=== PATIENT | male | born 1965 | race Caucasian/White ===

== ENCOUNTER 2023-11-02 13:59 | Observation (INO) ==
[2023-11-02 14:37] LABS: Basophils # (auto) 0.09 K/uL (0.00-0.20); Basophils % (auto) 1.1 %; Eosinophils # (auto) 0.19 K/uL (0.00-0.50); Eosinophils % (auto) 2.4 %; Hematocrit (blood only) 43.4 % (42.0-52.0); Hemoglobin 15.2 g/dl (14.0-18.0); Immature Granulocytes # (auto) 0.03 K/uL (0.01-0.20); Immature Granulocytes % (auto) 0.4 %; Lymphocytes % (auto) 21.3 %; Mean Corpuscular Hemoglobin 31.1 pg (25.0-34.0); Mean Corpuscular Volume 88.8 fL (80.0-100.0); Mean Platelet Volume 9.2 fL (9.4-12.4); Monocytes % (auto) 7.5 %; Neutrophils # (auto) 5.36 K/uL (1.40-6.50); Neutrophils % (auto) 67.3 %; Platelet Count 266 K/uL (130-400); RDW Coefficient of Variation 12.3 % (11.5-14.5); RDW Standard Deviation 40.2 fL (36.4-46.3); Red Blood Count 4.89 M/uL (4.70-6.10); White Blood Count 7.97 K/ul (4.8-10.8)
--- NOTE | 2023-11-02 14:39 | Emergency Department Note ---
ED Provider Note History of Present Illness Chief Complaint: Cardiac Assessment Stated Complaint: CHEST PAIN, OPEN HEART SUG, 4YEARS Time Seen by Provider: 11/02/23 14:38 This is a 58-year-old male with a history of hypertension, high cholesterol, history of aortic stenosis requiring bovine valve replacement 4 years ago in [place], who presents to the emergency department with pain located in the center of his chest that he woke up with this morning. He also endorses significant fatigue today. He rates the pain as 1-2 out of 10. It does not radiate anywhere and does not really get any better or worse with anything. He states that it feels like it is his heart. His pain does not seem to get any worse when he exerts himself though he has been afraid to push his exertion today worried that he might make the pain worse. He has had intermittent palpitations on and off for quite a long time and denies any new increase in palpitation frequency. He had a little bit of nausea and felt slightly clammy for about 10 minutes at work earlier today but that resolved and has not returned. The pain does not seem to be any worse with any positional changes. He thinks that his feet might be a little bit more swollen than normal but he denies any significant increase in swelling in his legs. He does not feel short of breath at rest or with exertion. Does endorse a bit of a dry cough over the past month intermittently but nothing worse recently. Has not had any fevers. Aside from the heart valve replacement 4 years ago, the patient does not have any other significant cardiac history. He has not had an echocardiogram in 2 years as he recently relocated to this area about a year ago and has not established with cardiology yet. He denies any new orthopnea or paroxysmal nocturnal dyspnea. No new leg pain or redness. This father did from a heart attack at age 57. No history of smoking. Not on any blood thinners. Home Medications Medication Instructions Recorded Confirmed Type acetaminophen 500 mg tablet 500 mg PO Q6H PRN Pain/Fever 11/02/23 11/02/23 History magnesium 250 mg tablet 250 mg PO DAILY 11/02/23 11/02/23 History olmesartan 40 1 tab PO DAILY 11/02/23 11/02/23 History mg-hydrochlorothiazide 25 mg tablet Allergies Allergy/AdvReac Type Severity Reaction Status Date / Time No Known Allergies Allergy Unverified 11/02/23 16:18 Past Med/Surg History Problem List (Updated 11/02/23 @ 18:40 by SANA Cole) Ascending aorta dilatation (Acute) Elevated BUN (Acute) Fatigue (Acute) Chest pain (Acute) Chest pain Social History Smoking Status: Never smoker Preferred Language: Yakut Feels Safe at Home: Yes Physical Exam Vital Signs Vital Signs - 24 hr 11/02/23 14:05 11/02/23 16:29 11/02/23 18:35 Temperature 97.2 F L Temperature Source Temporal Artery Scan Pulse Rate 72 Pulse Rate [Apical] 73 77 Respiratory Rate 18 18 18 Respiratory Effort / Characteristics Non-Labored Spontaneous Respiratory Depth Normal Respiratory Pattern Regular Blood Pressure 143/93 H Blood Pressure [Right Arm] 144/85 H 139/100 Blood Pressure Mean 109 Blood Pressure Mean [Right Arm] 104 113 Pulse Oximetry 97 99 97 Oxygen Delivery Method Room Air Room Air Room Air Sepsis Recent Fever Within 48 Hours No Sepsis New/Unexplained Change in Mental Status N/A Sepsis Action Taken by Nursing No Action Required CONSTITUTIONAL: Well developed, well nourished, in no acute distress, pleasant. HEAD: Normocephalic, atraumatic. EYES: conjunctivae normal, extraocular muscles intact. ENMT: External ears normal. Nose with normal external appearance, no congestion. Oral mucous membranes moist. Oropharynx normal. NECK: Full active range of motion. No JVD or hepatojugular reflux RESPIRATORY: Breathing unlabored and symmetric. Lungs clear to auscultation bilaterally. No wheeze, rales, or rhonchi. CARDIOVASCULAR: Regular rate and rhythm. Soft systolic murmur identified at the tricuspid area. CHEST: Unable to reproduce the patient's pain with palpation of the sternum. ABDOMEN: Normal bowel sounds. Soft, nontender, no peritonitis. No masses. No CVA tenderness bilaterally. GENITOURINARY: [employer] present. Normal appearance with no lesions, rashes, or discharge noted. Testicles descended bilaterally with no tenderness, swelling, or masses. No epididymal tenderness. MUSCULOSKELETAL: Moves all extremities at all joints without pain or difficulty. Trace nonpitting edema in bilateral lower extremities. No erythema or unilateral leg swelling, no tenderness in the legs. SKIN: [place], warm, dry. NEUROLOGIC: Awake, alert, oriented. Gaze is conjugate. Face symmetric, speech normal. Moves head and all four extremities spontaneously. PSYCHIATRIC: Appropriate. Normal affect Course Administered Medications Discontinued Medications Aspirin (Aspirin Chew 324 Mg) 324 mg PO NOW STA Stop: 11/02/23 16:07 Last Admin: 11/02/23 16:10 Dose: 324 mg Documented By: PALAK Ioversol (Optiray 320 125ml) 117 ml IV ONCE ONE Stop: 11/02/23 16:00 Last Admin: 11/02/23 15:59 Dose: 117 ml Documented By: KATHIE Medical Decision Making Differential Diagnosis Acute coronary syndrome, CHF, valvular dysfunction, arrhythmia, fluid overload, pulmonary embolism, pneumothorax, myocarditis, pericarditis, pancreatitis, GERD, among other pathology Laboratory Data 11/02/23 14:17 11/02/23 14:17 Lab Results 11/02/23 11/02/23 Range/Units 14:17 16:25 WBC 7.97 (4.8-10.8) K/ul RBC 4.89 (4.70-6.10) M/uL Hgb 15.2 (14.0-18.0) g/dl Hct 43.4 (42.0-52.0) % MCV 88.8 (80.0-100.0) fL MCH 31.1 (25.0-34.0) pg MCHC 35.0 (32.0-36.0) g/dL RDW Std Deviation 40.2 (36.4-46.3) fL RDW Coeff of Philip 12.3 (11.5-14.5) % Plt Count 266 (130-400) K/uL MPV 9.2 L (9.4-12.4) fL Immature Gran % (Auto) 0.4 % Neut % (Auto) 67.3 % Lymph % (Auto) 21.3 % [place] % (Auto) 7.5 % Eos % (Auto) 2.4 % Baso % (Auto) 1.1 % Neut # (Auto) 5.36 (1.40-6.50) K/uL Lymph # (Auto) 1.70 (1.20-3.40) K/uL [place] # (Auto) 0.60 H (0.11-0.59) K/uL Eos # (Auto) 0.19 (0.00-0.50) K/uL Baso # (Auto) 0.09 (0.00-0.20) K/uL Immature Gran # (Auto) 0.03 (0.01-0.20) K/uL PT 10.8 (9.0-12.0) Seconds INR 1.0 (0.9-1.1) APTT 29 (21-31) Seconds PTT Ratio 1.1 Sodium 139 (136-145) mmol/L Potassium 3.8 (3.5-5.1) mmol/L Chloride 104 (98-107) mmol/L Carbon Dioxide 27 (21-32) mmol/L Anion Gap 8 (3-11) BUN 36 H (6-23) mg/dl Creatinine 0.78 (0.6-1.4) mg/dl Est Cr Clr Drug Dosing 142.5 ml/min Est GFR ( Amer) 115.3 ml/min Est GFR (Non-Af Amer) 99.5 ml/min BUN/Creatinine Ratio 46.2 H (10-20) Glucose 103 H (70-99(Fasting)) mg/dl Calcium 10.1 (8.6-10.3) mg/dl Total Bilirubin 0.7 (0.2-1.0) mg/dl AST 18 (13-39) U/L ALT 18 (7-52) U/L Alkaline Phosphatase 82 (34-104) U/L Troponin I High Sens 4.1 3.4 (0-20) pg/ml Total Protein 8.1 (6.0-8.3) gm/dl Albumin 4.8 (3.4-5.0) gm/dl Globulin 3.3 (2.5-4.0) gm/dl Albumin/Globulin Ratio 1.5 (0.9-2) Lipase 72 (11-82) U/L Imaging Data Radiologist's Impression: Chest X-Ray 11/02/23 14:09 XR chest 1V not portable CLINICAL HISTORY: Chest pain, nonspecific COMPARISON STUDY: No previous studies for comparison. FINDINGS: Status post median sternotomy. Lung volumes are normal. Lungs are clear. There is no pneumothorax or pleural effusion. Cardiac size is normal. Mediastinal contours are normal. There is no evidence for pulmonary edema. IMPRESSION: No acute cardiopulmonary findings. ACT 112: Negative or not required by law. Electronically signed by: Song Morris M.D. 11/02/2023 2:55 PM Chest CTA 11/02/23 15:41 CT ANGIOGRAPHY OF THE CHEST, PULMONARY EMBOLUS PROTOCOL CLINICAL HISTORY: central CP, hx bovine aortic valve replacement COMPARISON STUDY: Chest radiograph performed earlier today. TECHNIQUE: Following IV administration of 117 mL of Optiray, helical axial images of the chest were obtained utilizing the pulmonary embolus protocol. Maximal intensity projections and sagittal and coronal reformats were viewed on an independent 3D workstation. IV contrast was administered without complication. Automated exposure control was utilized for the study. A dose lowering technique was utilized adhering to the principles of ALARA. CT DOSE: 917.52 mGy.cm FINDINGS: No pulmonary emboli are identified. There are median sternotomy wires and a prosthetic aortic valve. There is mild dilatation of the ascending aorta measuring 4.1 cm at the level of the main pulmonary artery. Thoracic aortic opacification is suboptimal but no dissection is identified. There is mild atherosclerotic plaque within the thoracic aorta. No thoracic lymphadenopathy. No pneumothorax or pleural effusion is present. There is no consolidation to suggest pneumonia. There are no suspicious pulmonary nodules. No acute fractures within the visualized bony thorax are present. Visualized portions of the upper abdomen are unremarkable. IMPRESSION: 1. No pulmonary emboli identified. 2. No acute intrathoracic findings. 3. Mild dilatation of the ascending aorta measuring 4.1 cm at the level of the main pulmonary artery. Thoracic aortic opacification suboptimal but no dissection identified. ACT 112: Negative or not required by law. Electronically signed by: Song Morris M.D. 11/02/2023 4:45 PM MDM Narrative 58-year-old male presents to the emergency department with pain located behind the lower part of his sternum that he woke up with this morning, rated as 1-2 out of 10, not worse or better with much of anything. Endorses fatigue today. Had an episode of nausea and feeling clammy for about 10 minutes earlier today at work which spontaneously resolved and has not returned. He thinks that his feet might be a little more puffy than normal but not much. Denies any dyspnea. Endorses a mild dry cough over the past month. History of bovine aortic valve replacement 4 years ago in [place]. Lives in this area now. See above for further details. Patient resting comfortably in no distress with normal vital signs aside from minimal hypertension at 143/93. O2 saturation 97% on room air. He is not tachycardic. He is not in any respiratory distress. He has a soft systolic murmur likely consistent with valve replacement. Unable to reproduce his symptoms. He is not obviously fluid overloaded. EKG initially interpreted by myself demonstrating sinus rhythm with a first- degree AV block UT interval 220. Remainder of intervals normal. Nonspecific T wave abnormality in lead III and aVF, no other acute abnormalities identified. IV was inserted and labs were obtained. Patient was given 324 mg aspirin Labs: No leukocytosis or anemia. No thrombocytopenia. Coags normal. BUN and BUN/creatinine ratio elevated. Initial and repeat troponin normal. Chest x-ray 1 view negative for acute process Heart score 4 points. Reevaluated patient at bedside and discussed case with ED attending Dr. Aguirre. Decided to obtain a CT of the chest for further evaluation. This demonstrates mild dilation of the ascending aorta measuring 4.1 cm no dissection noted. Patient continued with mild discomfort. Given his history, lack of cardiology follow-up, and need for echocardiogram, I recommended admission and he was agreeable. [facility] agrees to admit the patient. Impression Chest pain, Fatigue, Elevated BUN, Ascending aorta dilatation Discharge Plan Visit Data Chief Complaint: Cardiac Assessment Stated Complaint: CHEST PAIN, OPEN HEART SUG, 4YEARS ED Provider: Ken Aguirre ED Midlevel Provider: Joe Hare Discharge Problem: Chest pain, Fatigue, Elevated BUN, Ascending aorta dilatation Patient Disposition: Admitted As Inpatient Condition: Good Forms Stand Alone Forms: My [facility] Cerephex Prescriptions Prescriptions: No Action acetaminophen [Tylenol Ex Str Rapid Release] 500 mg Tablet 500 mg PO Q6H PRN (Reason: Pain/Fever) magnesium 250 mg Tablet 250 mg PO DAILY olmesartan-hydrochlorothiazide 40-25 mg Tablet 1 tab PO DAILY Referrals Referrals: PCP,NO [Physician] - Discharge Problem: Chest pain Qualifiers: Chest pain type: precordial pain Qualified Code(s): R07.2 - Precordial pain Fatigue Qualifiers: Fatigue type: unspecified Qualified Code(s): R53.83 - Other fatigue
[2023-11-02 14:53] LABS: Partial Thromboplastin Ratio 1.1; Partial Thromboplastin Time 29 Seconds (21-31); Prothrombin Time 10.8 Seconds (9.0-12.0)
[2023-11-02 14:55] LABS: Albumin Level 4.8 gm/dl (3.4-5.0); Bilirubin,Total 0.7 mg/dl (0.2-1.0); Calcium 10.1 mg/dl (8.6-10.3); Potassium 3.8 mmol/L (3.5-5.1)
--- NOTE | 2023-11-02 14:56 | XRay Report ---
XR chest 1V not portable CLINICAL HISTORY: Chest pain, nonspecific COMPARISON STUDY: No previous studies for comparison. FINDINGS: Status post median sternotomy. Lung volumes are normal. Lungs are clear. There is no pneumo thorax or pleural effusion. Cardiac size is normal. Mediastinal contours are normal. There is no evid ence for pulmonary edema. IMPRESSION: No acute cardiopulmonary findings. ACT 112: Negative or not required by law. Electronically signed by: Song Morris M.D. 11/02/2023 2:55 PM
[2023-11-02 15:01] LABS: Albumin Globulin Ratio 1.5 (0.9-2); BUN Creatinine Ratio 46.2 (10-20); Creatinine Clr Calc Pharmacy 142.5 ml/min; Est GFR (African American) 115.3 ml/min; Est GFR (Non-African American) 99.5 ml/min; Globulin 3.3 gm/dl (2.5-4.0); Total Protein 8.1 gm/dl (6.0-8.3)
[2023-11-02 15:02] LABS: Troponin I High Sensitivity 4.1 pg/ml (0-20)
[2023-11-02] MEDS: OPTIRAY 320 125ml IV ONE (15:59)
[2023-11-02] MEDS: ASPIRIN CHEW 324 MG PO STA (16:10)
--- NOTE | 2023-11-02 16:47 | CT Scan Report ---
CT ANGIOGRAPHY OF THE CHEST, PULMONARY EMBOLUS PROTOCOL CLINICAL HISTORY: central CP, hx bovine aortic valve replacement COMPARISON STUDY: Chest radiograph performed earlier today. TECHNIQUE: Following IV administration of 117 mL of Optiray, helical axial images of the chest were o btained utilizing the pulmonary embolus protocol. Maximal intensity projections and sagittal and cor onal reformats were viewed on an independent 3D workstation. IV contrast was administered without co mplication. Automated exposure control was utilized for the study. A dose lowering technique was ut ilized adhering to the principles of ALARA. CT DOSE: 917.52 mGy.cm FINDINGS: No pulmonary emboli are identified. There are median sternotomy wires and a prosthetic aor tic valve. There is mild dilatation of the ascending aorta measuring 4.1 cm at the level of the main pulmonary artery. Thoracic aortic opacification is suboptimal but no dissection is identified. There is mild atherosclerotic plaque within the thoracic aorta. No thoracic lymphadenopathy. No pneumothora x or pleural effusion is present. There is no consolidation to suggest pneumonia. There are no suspic ious pulmonary nodules. No acute fractures within the visualized bony thorax are present. Visualized portions of the upper abdomen are unremarkable. IMPRESSION: 1. No pulmonary emboli identified. 2. No acute intrathoracic findings. 3. Mild dilatation of the ascending aorta measuring 4.1 cm at the level of the main pulmonary artery. Thoracic aortic opacification suboptimal but no dissection identified. ACT 112: Negative or not required by law. Electronically signed by: Song Morris M.D. 11/02/2023 4:45 PM
[2023-11-02] MEDS ORDERED: ALUMINUM/MAGNESIUM SUSP 30 ML UDC PO PRN (18:33)
[2023-11-02] MEDS ORDERED: MAGNESIUM HYDROXIDE SUSP 30 ML UDC PO PRN (18:33)
[2023-11-02] MEDS ORDERED: ACETAMINOPHEN 325 MG TAB PO PRN (18:33)
--- NOTE | 2023-11-02 18:34 | History & Physical Report ---
Date of Service November 02, 2023 Assessment & Plan (1) Chest pain: Plan Chest pain rule out ACS Patient is yet to follow-up with PCP in the area, but has established with [facility] PCP. Patient has moved in the area in the last year or so. Patient comes in with chest pain. Will get A1c and lipid profile. Troponin x 2 negative, EKG without acute ST or T changes. Trend troponin, EKG with chest pain, sublingual nitro as needed, EKG in the a.m., echo, cardiology consult. N.p.o. midnight until cardiology eval in AM. Hypertension: Continue home olmesartan and hydrochlorothiazide. DVT prophylaxis: Heparin subcu Full code History of Present Illness Chief Complaint: Chest pain Primary Care Provider: Duc Lewis MD 58-year-old male with PMH of HTN, bicuspid aortic valve status post bovine valve replacement 4 years ago on annual echo surveillance presented to the ED with complaint of chest pain. Patient reports that he woke up with retrosternal chest discomfort in the morning, 1-2/10 in severity, no radiation to scapula or back or arm or neck, had 1 episode of associated sweating/clammy for about 5 minutes in the day, did not improve through the day, did not have exacerbation with activity, presented to the ED as he was concerned because of his cardiac history. Patient denies fever/sore throat/cough/abdominal pain/acute changes in his bowel or bladder habit. Patient denies smoking, rarely uses alcohol, denies recreational drug use Medication discussed with the patient in detail Full code Plan of care discussed with the patient and his at bedside who voiced understanding and were agreeable. Allergies Allergy/AdvReac Type Severity Reaction Status Date / Time No Known Allergies Allergy Unverified 11/02/23 16:18 Home Medications Medication Instructions Recorded Confirmed Type acetaminophen 500 mg tablet 500 mg PO Q6H PRN Pain/Fever 11/02/23 11/02/23 History magnesium 250 mg tablet 250 mg PO DAILY 11/02/23 11/02/23 History olmesartan 40 1 tab PO DAILY 11/02/23 11/02/23 History mg-hydrochlorothiazide 25 mg tablet Past Med/Surg History Problem List (Updated 11/02/23 @ 18:38 by Halima Yang MD) Chest pain Social History Smoking Status: Never smoker Preferred Language: Yakut Feels Safe at Home: Yes Review of Systems Review of Systems: Negative otherwise mentioned in HPI. Physical Exam Physical Exam: GENERAL: Alert and oriented x3. NAD, on RA. Obese class I. HEENT: No pallor, no icterus. Pupils equal, round and reactive to light. Oral mucosa moist. NECK: No JVD, no neck masses. HEART: S1 and S2 heard. Regular rate and rhythm. + murmur, no gallop. RESPIRATORY SYSTEM: Normal AP diameter. No accessory muscle use. No wheezing, no crackles. ABDOMEN: Soft, bowel sounds present, nontender, no distention. CENTRAL NERVOUS SYSTEM: No facial droop. Speech is clear. Obeys simple commands. Moves extremities. EXTREMITIES: No edema, no erythema seen. Results & Data Results & Data Vital Signs (Past 12 Hours) Vital Signs Temp Pulse Pulse Resp BP BP Pulse Ox 11/02/23 16:29 73 18 144/85 H 99 11/02/23 14:05 36.2 C L 72 18 143/93 H 97 O2 Del Method 11/02/23 16:29 Room Air 11/02/23 14:05 Room Air
[2023-11-02] MEDS ORDERED: NITROGLYCERIN SL 0.4 MG/TAB TAB SL PRN (18:36)
[2023-11-02] MEDS ORDERED: oxyCODONE HCL IR 5 MG TAB (IMMEDIATE RELEASE) PO PRN (22:07)
[2023-11-02] MEDS: NITROGLYCERIN SL 0.4 MG/TAB TAB SL STA (22:09)
[2023-11-02] MEDS: MELATONIN 3 MG TAB PO PRN (23:42)
[2023-11-03 04:13] LABS: Hematocrit (blood only) 41.6 % (42.0-52.0); Hemoglobin 14.6 g/dl (14.0-18.0); Mean Corpuscular Hemoglobin 31.4 pg (25.0-34.0); Mean Corpuscular Hgb Conc 35.1 g/dL (32.0-36.0); Mean Corpuscular Volume 89.5 fL (80.0-100.0); Platelet Count 238 K/uL (130-400); RDW Coefficient of Variation 12.3 % (11.5-14.5); RDW Standard Deviation 39.9 fL (36.4-46.3); Red Blood Count 4.65 M/uL (4.70-6.10); White Blood Count 7.27 K/ul (4.8-10.8)
[2023-11-03 04:38] LABS: BUN Creatinine Ratio 34.2 (10-20); Calcium 9.3 mg/dl (8.6-10.3); Chol HDL Ratio 5.6 (0-5); Creatinine Clr Calc Pharmacy 140.7 ml/min; Est GFR (African American) 114.7 ml/min; Magnesium 1.9 mg/dl (1.7-2.4); Potassium 3.3 mmol/L (3.5-5.1)
[2023-11-03 07:02] LABS: Estimated Average Glucose 105 mg/dl; Hemoglobin A1C 5.3 % (4.5-5.6)
[2023-11-03] MEDS: MAGNESIUM OXIDE 400 MG TAB PO SCH (08:32)
[2023-11-03] MEDS: LOSARTAN POTASSIUM 50 MG TAB PO SCH (08:32)
[2023-11-03] MEDS: hydroCHLOROthiazide 25 MG TAB PO SCH (08:33)
--- NOTE | 2023-11-03 08:53 | Cardiology Consultation ---
Date of Consultation November 03, 2023 Assessment & Plan (1) Chest pain: * Serial EKG and high-sensitivity troponin levels reassuring. * Resting echocardiogram without any regional wall motion abnormalities * CT angiogram of the pulmonary embolism * Proceed with exercise stress echocardiogram for further assessment (2) History of aortic valve replacement with bioprosthetic valve: * History of severe bicuspid aortic valve stenosis having presented with congestive heart failure in 2019 and ultimately underwent surgical aortic valve replacement with a bioprosthetic aortic valve. Stable valvular indices on echocardiogram performed today. * Would recommend aspirin 81 mg daily for stroke prophylaxis in the setting of AVR which is standard of care in patients that have low bleeding risk (3) Ascending aorta dilatation: * Mild enlargement of the proximal ascending aorta, 4.1 cm in setting of history of bicuspid aortic valve. * Will plan on reimaging at an interval of 6-12 months as an outpatient (4) Dyslipidemia: * Significant dyslipidemia noted with LDL cholesterol of 181 mg/dL in Jul, 2023, 155 mg/dL today. * Intolerant to trials of simvastatin and rosuvastatin in the past with cramps / muscle pains * Reportedly had angiographically normal coronary arteries and therefore ongoing elevated cholesterol permissible per previous providers * Likely proceed with at trial of Ezetimibe as outpatient. History of Present Illness Attending Physician: Elizabeth Pichardo MD History of Present Illness Mr. Garzon is a 58 year old man seen in cardiology consultation per the request of Dr Yang for the evaluation of chest pain. Patient seen in the ED room C3. Patient's girlfriend, Kathi, at the bedside. He describes feeling in his normal state of health until yesterday morning when he woke up with a vague 2/10 intensity chest discomfort that persisted throughout the day. He felt very tired and lethargic which is not his usual. Occasionally he will have a twinge of chest discomfort on the left side of his chest that goes away within seconds, but this was more midline, and persisted. He notes rare occasional "flutters "but this was different. Ultimately the discomfort eased up overnight last night. He describes having a history of congenital bicuspid aortic valve with aortic valve stenosis. He was hospitalized in [facility] ([place], [place]) in 2019 and per his description was diagnosed with a bicuspid aortic valve at that time as well as severe aortic stenosis and ultimately underwent bioprosthetic aortic valve replacement. He recalls having had a cardiac catheterization and was told that his heart arteries were normal. He states his most recent echocardiogram had been with his previous grinder and plater in [place] in 2022. He moved to [facility] about a year ago and had yet to establish local cardiology care here having established with Dr. Lewis of [facility] [place] a few months ago. Past medical history is otherwise notable for hypertension for which she takes olmesartan and HCTZ. He denies ever having been on low-dose aspirin with the exception of a few days after the surgery. He has a history of dyslipidemia with side effects to both rosuvastatin and simvastatin per his recollection and therefore has not been on treatment. Allergies Allergy/AdvReac Type Severity Reaction Status Date / Time No Known Allergies Allergy Unverified 11/02/23 16:18 Home Medications Medication Instructions Recorded Confirmed Type acetaminophen 500 mg tablet 500 mg PO Q6H PRN Pain/Fever 11/02/23 11/02/23 History magnesium 250 mg tablet 250 mg PO DAILY 11/02/23 11/02/23 History olmesartan 40 1 tab PO DAILY 11/02/23 11/02/23 History mg-hydrochlorothiazide 25 mg tablet Patient History Social History Smoking Status: Never smoker Hx Alcohol Use: Yes Hx Substance Use: No Preferred Language: Armenian Communication Ability: Effective Sponge Packer Required: No Beliefs That Will Affect Care: None Current Living Situation: Significant Other Feels Safe at Home: Yes Safety Concerns: Feels Safe At This Time Assistive Devices: None Review of Systems Review of Systems: All systems reviewed & are unremarkable except as noted in HPI & below Physical Exam Physical Exam: General: no acute distress and stated age Eyes: conjunctiva are pink and non-injected, sclera clear Neck: normal jugular venous pulse, no hepatojugular reflux Chest: normal shape and normal respiratory effort -Well-healed midline sternotomy incision , stable sternum, no reproducible chest discomfort on palpation Lungs: clear to auscultation and percussion Cardiac Exam: - regular heart sounds, no murmurs, rubs, or gallops, no jugular venous distention Abdomen: abdomen soft, non-tender, no abnormal masses and no hepatosplenomegaly Musculoskeletal: no gait disturbance, no weakness Extremities: no edema and no cyanosis Neuro:awake, conversant, follows commands, no focal motor deficits Psych: appropriate affect and insight. Results & Data Vital Signs (Past 12 Hours) Vital Signs Pulse Pulse Resp BP BP BP Pulse Ox 11/03/23 08:38 79 18 123/73 98 11/03/23 07:17 82 11/03/23 06:00 62 17 127/72 98 11/03/23 04:21 76 18 96 11/03/23 03:08 64 11/03/23 01:01 124/79 11/03/23 00:03 76 13 100/63 11/02/23 23:09 79 15 115/63 11/02/23 22:30 80 19 131/84 11/02/23 22:03 82 15 106/59 L 11/02/23 22:00 80 18 101/62 11/02/23 22:00 82 18 106/59 L 98 11/02/23 21:36 80 19 143/82 H 11/02/23 21:21 83 O2 Del Method 11/03/23 08:38 Room Air 11/03/23 07:17 11/03/23 06:00 Room Air 11/03/23 04:21 Room Air 11/03/23 03:08 11/03/23 01:01 11/03/23 00:03 11/02/23 23:09 11/02/23 22:30 11/02/23 22:03 11/02/23 22:00 11/02/23 22:00 Room Air 11/02/23 21:36 11/02/23 21:21 Laboratory Results Cardiac Enzymes 11/02/23 11/02/23 11/02/23 Range/Units 14:17 16:25 22:22 AST 18 (13-39) U/L Troponin I High Sens 4.1 3.4 3.8 (0-20) pg/ml 11/03/23 Range/Units 04:06 AST (13-39) U/L Troponin I High Sens 3.5 (0-20) pg/ml Coagulation 11/02/23 Range/Units 14:17 PT 10.8 (9.0-12.0) Seconds APTT 29 (21-31) Seconds Lipids 11/03/23 Range/Units 04:06 Triglycerides 245 H (0-150) mg/dl Cholesterol 248 H (0-200) mg/dl HDL Cholesterol 44 mg/dl Cholesterol/HDL Ratio 5.6 H (0-5) CBC 11/02/23 11/03/23 Range/Units 14:17 04:06 WBC 7.97 7.27 (4.8-10.8) K/ul RBC 4.89 4.65 L (4.70-6.10) M/uL Hgb 15.2 14.6 (14.0-18.0) g/dl Hct 43.4 41.6 L (42.0-52.0) % Plt Count 266 238 (130-400) K/uL Neut # (Auto) 5.36 (1.40-6.50) K/uL Lymph # (Auto) 1.70 (1.20-3.40) K/uL [place] # (Auto) 0.60 H (0.11-0.59) K/uL Eos # (Auto) 0.19 (0.00-0.50) K/uL Baso # (Auto) 0.09 (0.00-0.20) K/uL Comprehensive Metabolic Panel 11/02/23 11/03/23 Range/Units 14:17 04:06 Sodium 139 137 (136-145) mmol/L Potassium 3.8 3.3 L (3.5-5.1) mmol/L Chloride 104 104 (98-107) mmol/L Carbon Dioxide 27 27 (21-32) mmol/L BUN 36 H 27 H (6-23) mg/dl Creatinine 0.78 0.79 (0.6-1.4) mg/dl Glucose 103 H 114 H (70-99(Fasting)) mg/dl Calcium 10.1 9.3 (8.6-10.3) mg/dl AST 18 (13-39) U/L ALT 18 (7-52) U/L Alkaline Phosphatase 82 (34-104) U/L Total Protein 8.1 (6.0-8.3) gm/dl Albumin 4.8 (3.4-5.0) gm/dl Intake and Output 11/02/23 11/03/23 11/03/23 22:59 06:59 14:59 Intake Total 0 / 0 Balance 0 / 0 Intake: Oral 0 / 0 Other: # Unmeasured Voids 1 Weight 117.3 kg Weight Measurement Method Chair Scale Lipid panel performed as an outpatient 07/31/2023: Total cholesterol 272 Triglycerides 234 HDL 44 LDL 181 mg/dL Lipid panel performed today 11/03/2023: Total cholesterol 248 Triglycerides 245 HDL 44 LDL 155 Hemoglobin A1c performed 07/31/2023 5.5% Diagnostic Findings Summary of transthoracic echocardiogram performed 11/03/2023: The study is technically limited but adequate for the evaluation of the referral indication. There is mild concentric left ventricular hypertrophy. No regional wall motion abnormalities noted. Left ventricular systolic function is normal. Left Ventricular Ejection Fraction = 55-60%. The right ventricle is normal in size and function. There is a bioprosthetic aortic valve. The prosthetic leaflets are not well-visualized. There is no significant valvular regurgitation. The gradient is normal for this prosthetic aortic valve. Diastolic dysfunction, Grade II (pseudonormalization pattern). Doppler findings do not suggest pulmonary hypertension. There is no pericardial effusion. EKG tracings performed x 3 on 11/02/2023 and again this morning on 11/03/2023 reviewed independently revealing sinus rhythm with rate ranging from 62 to 70 bpm, first-degree AV block, mild nonspecific repolarization abnormalities. Summary of CT angiogram chest performed 11/01/2023: 1. No pulmonary emboli identified. 2. No acute intrathoracic findings. 3. Mild dilatation of the ascending aorta measuring 4.1 cm at the level of the main pulmonary artery. Thoracic aortic opacification suboptimal but no dissection identified. (1) Chest pain Chest pain type: precordial pain Qualified Code(s): R07.2 - Precordial pain
[2023-11-03] MEDS ORDERED: OLMESARTAN HYDROCHLOROTHIAZIDE PO SCH (09:00)
--- OUTSIDE RECORDS SUMMARY | 2023-11-03 11:21 | External Medical Summary | Summary of Care ---
Author Name Unknown Organization [facility] Address [address] [place] [address] Phone [phone] Care Team Providers Care Occupational Safety Specialist Name Role Phone Duc Lewis MD Primary Care Provider [phone] Reason for Visit * Reason Onset Date Comments Medication Refill 07/23/2023 Encounter Details Date Type Department Care Team (Late st Contact Info) Description 07/23/2023 Refill [facility] [address] [place] [address] JulyDuc MD [address] [place] [address] Erectile dysfunction, unspecified erectile dysfunction type Allergies Active Allergy Reactions Criticality Noted Date Comments Statins Muscle pain 05/26/2022 documented as of this encounter (statuses as of 07/23/2023) Medications Medication Sig Dispensed Refills Start Date End Date Status Testosterone 40.5 MG/2.5GM (1.62%) Transdermal Gel APPLY 1 PACKET TO SKIN ONCE A DAY 0 05/15/2022 Active Olmesartan Medoxomil-HCTZ 40-25 MG Oral TabletIndications:Hyp ertension goal BP (blood pressure) < 140/90 Take 1 Tablet by mouth in the morning. 90 Tablet 3 04/13/2023 Active Sildenafil Citrate 100 MG Oral TabletIndications:Ere ctile dysfunction, unspecified erectile dysfunction type Take 1 Tablet by mouth daily as needed for Erectile Dysfunction. 30 Tablet 0 04/13/2023 Active documented as of this encounter (statuses as of 07/23/2023) Active Problems Problem Noted Date Diagnosed Date S/P aortic valve replacement 06/22/2022 Bicuspid aortic valve 06/22/2022 Hypercholesterolemia 06/22/2022 Low testosterone 06/22/2022 Statin intolerance 06/22/2022 Primary insomnia 06/22/2022 Hypertension goal BP (blood pressure) < 140/90 0 06/22/2022 documented as of this encounter (statuses as of 07/23/2023) Social History Tobacco Use Types Packs/Day Years Used Date Smoking Tobacco: Never Smokeless Tobacco: Never Alcohol Use Standard Drinks/Week Comments Never 0 (1 standard drink = 0.6 oz pur e alcohol) Sex and Gender Information Value Date Recorded Sex Assigned at Not on file Gender Identity Not on file Sexual Orientation Not on file Job Start Date Occupation Industry Not on file Not on file Not on file documented as of this encounter Miscellaneous Notes * Telephone Encounter - Tisha Figueroa - 07/23/2023 10:33 PM EDTRefused Prescriptions: Disp Refills Sildenafil Citrate 100 MG Oral Tablet 30 Tab*0 Sig: Take 1 Tablet by mouth daily as needed for Erectile Dysfunction.Refused By: JEANNETTE FIGUEROAeason for Refusal: Duplicate Request documented in this encounter Plan of Treatment Upcoming Encounters Date Type Department Care Team (Late st Contact Info) Description 10/19/2023 4:40 PM EDT Office Visit [facility] [address] [place] [address] July, Duc Knowles MD [address] [place] [facility] [place] [address] Health Maintenance Due Date Last Done Comments Diabetes Screening 1965 Lipid Panel 1965 Depression Screening 1977 HIV Screening 1980 Albumin/Creatinine Ratio 07/20/1983 Hepatitis C Screening 07/20/1983 DTaP,Tdap,and Td Vaccines (1 - Tdap) 1984 Hepatitis B (1 of 3 - 19+ 3-dose series) 1984 Colonoscopy 2010 Fecal Occult Blood Test 2010 Sigmoidoscopy 2010 Zoster Vaccines (1 of 2) 07/20/2015 Cologuard 04/09/2021 04/09/2018, 03/30/2018 Colorectal Cancer Screening 04/09/2021 GFR 10/30/2021 10/30/2020, 10/07, 10/29/2020, Additional history exists COVID-19 Vaccine ( - 2022- season) 2022 Influenza Vaccine (FLU shot) (Season Ended) 2023 GARDASIL-HPV IMMUNIZATION SERIES Aged Out No longer eligible based on patient's age to complete this topic MENINGOCOCCAL (MENACTRA/MENVEO) Aged Out No longer eligible based on patient's age to complete this topic Pneumococcal Vaccine: Pediatrics (0 to 5 Years) and At-Risk Patients (6 to 64 Years) Aged Out No longer eligible based on patient's age to complete this topic documented as of this encounter Medical Devices Not on filedocumented as of this encounter Visit Diagnoses Diagnosis Erectile dysfunction, unspecified erectile dysfunction type documented in this encounter Care Teams Occupational Safety Specialist Relationship Specialty Start Date End Date July, Duc Knowles MD [address] [place] [address] PCP - General Family Medicine 06/18/22 documented as of this encounter
--- OUTSIDE RECORDS SUMMARY | 2023-11-03 11:21 | External Medical Summary | Summary of Care ---
Author Name Unknown Organization [facility] Address [address] [place] [address] Phone [phone] Care Team Providers Care Analysis Engineer Name Role Phone Duc Lewis MD Primary Care Provider [phone] Reason for Visit * Reason Onset Date Comments Health Maintenance 06/21/2023 Encounter Details Date Type Department Care Team (Late st Contact Info) Description 06/21/2023 Telephone [facility] [address] [place] [address] Duc Lewis MD [address] [place] [address] Health Maintenance Allergies Active Allergy Reactions Criticality Noted Date Comments Statins Muscle pain 05/26/2022 documented as of this encounter (statuses as of 06/21/2023) Medications Medication Sig Dispensed Refills Start Date [...] as of this encounter (statuses as of 06/21/2023) Active Problems Problem Noted Date Diagnosed Date S/P aortic valve replacement 06/22/2022 Bicuspid aortic valve 06/22/2022 Hypercholesterolemia 06/22/2022 Low testosterone 06/22/2022 Statin intolerance 06/22/2022 Primary insomnia 06/22/2022 Hypertension goal BP (blood pressure) < 140/90 0 06/22/2022 documented as of this encounter (statuses as of 06/21/2023) Social History Tobacco Use Types Packs/Day Years [...] encounter Miscellaneous Notes * Telephone Encounter - Delmy Flor LPN - 06/21/2023 11:26 AM EDT Care Gaps Comprehensive Care Outreach Last Office/Telemedicine Visit: 04/13/2023 (in office), Visit date not found (telemedicine) Next Office Visit: 10/19/2023 Hemoglobin AIC Results: No results found for: "HEMOGLOBIN A1C" BP Readings from Last 1 Encounters: 04/13/23 130/82 Reviewed Health Maintenance below: Health Maintenance Topic Date Due Diabetes Screening Never done Lipid Panel Never done Depression Screening Never done HIV Screening Never done Albumin/Creatinine Ratio Never done Hepatitis C Screening Never done Hepatitis B (1 of 3 - 19+ 3-dose series) Never done DTaP,Tdap,and Td Vaccines (1 - Tdap) Never done Zoster Vaccines (1 of 2) Never done Colorectal Cancer Screening 04/09/2021 GFR 10/30/2021 Cologuard follow Labs already ordered Care Gap Outreach Action Taken: Unable to reach won't ring through documented in this encounter Plan of Treatment Upcoming Encounters Date Type Department Care Team (Late st Contact Info) Description 10/19/2023 4:40 PM EDT Office Visit [facility] [address] [place] [address] Duc Lewis MD [address] [place] [place] [address] Health Maintenance Due Date Last Done Comments [...] Colorectal Cancer Screening 04/09/2021 GFR 10/30/2021 10/30/2020, 10/29/2020 COVID-19 Vaccine ( - 2022-2 4 season) 2022 Influenza Vaccine (FLU shot) (Season Ended) 2023 GARDASIL-HPV IMMUNIZATION SERIES Aged Out No longer eligible b ased on patient's age to complete this topic MENINGOCOCCAL (MENACTRA/MENVEO) Aged Out No longer eligible b ased on patient's age to complete this topic Pneumococcal Vaccine: Pediatrics (0 to 5 Years) and At-Risk Patients (6 to 64 Years) Aged Out No longer eligible b ased on patient's age to complete this topic documented as of this encounter Medical Devices Not on filedocumented as of this encounter Care Teams Analysis Engineer Relationship Specialty Start Date End Date July, Duc Knowles MD [address] [place] [address] PCP - General Family Medicine 06/18/22 documented as of this encounter
--- OUTSIDE RECORDS SUMMARY | 2023-11-03 11:21 | External Medical Summary | Summary of Care ---
Author Name Unknown Organization [facility] Address [address] [place] [address] Phone [phone] Care Team Providers Care Skein Straightener Name Role Phone Duc Lewis MD Primary Care Provider [phone] Reason for Visit * Reason Comments Outpatient Testing Encounter Details Date Type Department Care Team (Late st Contact Info) Description 07/31/2023 8:10 AM EDT Laboratory Laboratory, [facility] [address] [facility] [place] [address] [facility] [address] [place] [address] Hypertension goal BP (blood pressure) < 140/90; Hypercholesterolemia; Low testosterone; Screening for diabetes mellitus Allergies Active Allergy Reactions Criticality Noted Date Comments Statins Muscle pain 05/26/2022 documented as of this encounter (statuses as of 07/31/2023) Medications Medication Sig Dispensed Refills Start Date End Date Status Testosterone 40.5 MG/2.5GM (1.62%) Transdermal Gel APPLY 1 PACKET TO SKIN ONCE A DAY 05/15/2022 Active Olmesartan Medoxomil-HCTZ 40-25 MG Oral TabletIndications:Hyp ertension goal BP (blood pressure) < 140/90 Take 1 Tablet by mouth in the morning. 90 Tablet 3 04/13/2023 Active Sildenafil Citrate 100 MG Oral TabletIndications:Ere ctile dysfunction, unspecified erectile dysfunction type Take 1 Tablet by mouth daily as needed for Erectile Dysfunction. 30 Tablet 07/24/2023 Active documented as of this encounter (statuses as of 07/31/2023) Active Problems Problem Noted Date Diagnosed Date S/P aortic valve replacement 06/22/2022 Bicuspid aortic valve 06/22/2022 Hypercholesterolemia 06/22/2022 Low testosterone 06/22/2022 Statin intolerance 06/22/2022 Primary insomnia 06/22/2022 Hypertension goal BP (blood pressure) < 140/90 0 06/22/2022 documented as of this encounter (statuses as of 07/31/2023) Social History Tobacco Use Types Packs/Day Years [...] on file documented as of this encounter Plan of Treatment Upcoming Encounters Date Type Department Care Team (Late st Contact Info) Description 10/19/2023 4:40 PM EDT Office Visit [facility] [address] [place] [address] JulyDuc MD [address] [place] [address] Pending Results Name Type Priority Associated Diagnoses Date /Time COMPREHENSIVE METABOLIC PANEL Lab Routine Hypertension goal BP (blood pressure) < 140/90 07/31/2023 8:02 AM EDT LIPID PANEL WITH DIRECT LDL IF TG IS HIGH Lab Routine Hypercholesterolemia 07/31/2023 8:02 AM EDT TESTOSTERONE, TOTAL Lab Routine Low testosterone 07/31/2023 8:02 AM EDT HEMOGLOBIN A1C Lab Routine Screening for diabetes mellitus 07/31/2023 8:02 AM EDT Health Maintenance Due Date Last Done Comments [...] as of this encounter Visit Diagnoses Diagnosis Hypertension goal BP (blood pressure) < 140/90 Unspecified essential hypertension Hypercholesterolemia Pure hypercholesterolemia Low testosterone Other testicular hypofunction Screening for diabetes mellitus documented in this encounter Care Teams Skein Straightener Relationship Specialty Start Date End Date July, Duc Knowles MD [address] [place] [address] PCP - General Family Medicine 06/18/22 documented as of this encounter
--- OUTSIDE RECORDS SUMMARY | 2023-11-03 11:21 | External Medical Summary ---
Author Name Unknown Address Unknown Organization [id number] [address] [place] [address] Laboratory Report Ordering Provider Test Date Status 07/31/2023 08:02:28 Final Observation Date Value Abnormality Reference (Units ) Status BUN 07/31/2023 08:02:28 30 Above high normal 6-20 (mg/dL) Final Creatinine 07/31/2023 08:02:28 1.1 0.6-1.2 (mg/dL) Final Glomerular filtration rate/1.73 sq M.predicted [Volume Rate/Area] in Serum, Plasma or Blood by Creatinine-based formula (CKD-EPI) 07/31/2023 08:02:28 81 >=60 (mL/min) Final eGFR is calculated based on the CKD-EPI 2020 equation Sodium 07/31/2023 08:02:28 137 135-146 (m mol/L) Final Potassium 07/31/2023 08:02:28 4.4 3.5-5.1 (m mol/L) Final Cl 07/31/2023 08:02:28 100 98-107 (mm ol/L) Final CO2 07/31/2023 08:02:28 25 22-32 (mmo l/L) Final Anion gap 07/31/2023 08:02:28 12 7-15 (mmol /L) Final Glucose 07/31/2023 08:02:28 100 70-120 (mg /dL) Final Albumin 07/31/2023 08:02:28 4.7 3.8-5.0 (g /dL) Final AST (Aspartate aminotransferase) 07/31/2023 08:02:28 17 10-50 (U/L) Final Alk Phos 07/31/2023 08:02:28 104 35-130 (U/ L) Final Bilirubin, Total 07/31/2023 08:02:28 0.5 <=1 .2 (mg/dL) Final Calcium 07/31/2023 08:02:28 9.8 8.4-10.2 ( mg/dL) Final Protein 07/31/2023 08:02:28 7.6 6.0-8.3 (g /dL) Final ALT (Alanine aminotransferase) 07/31/2023 08:02:28 16 10-50 (U/L) Final Performing Location [facility] [address] [facility] [address]
--- OUTSIDE RECORDS SUMMARY | 2023-11-03 11:21 | External Medical Summary ---
Author Name Unknown Address Unknown Organization [id number] [place] [address] [place] [address] Laboratory Report Ordering Provider Test Date Status 07/31/2023 08:59:27 Final Normal: <30 mg/g creatinine< br/>High: 30-300 mg/g creatinine
Very High: >300 mg/g creatinine
Nephrotic: >2200 mg/g creatinine Observation Date Value Abnormality Reference (Units ) Status Albumin, Urine 07/31/2023 08:59:27 3.79 (mg/dL) Final Creatinine, Urine 07/31/2023 08:59:27 124 (mg/dL) Final Albumin/Creatinine [Mass Ratio] in Urine 07/31/2023 08:59:27 31 Above high normal <30 (mg/g Creat) Final Performing Location [facility] [place] [address] [place] [address]
--- OUTSIDE RECORDS SUMMARY | 2023-11-03 11:21 | External Medical Summary | Summary of Care ---
Author Name Unknown Organization [facility] Address [address] [place] [address] Phone [phone] Care Team Providers Care A&P Technician Name Role Phone Germaine Moncada MD Primary Care Provider [phone] Reason for Visit * Reason Onset Date Comments Medication Refill 07/23/2023 Encounter Details Date Type Department Care Team (Late st Contact Info) Description 07/23/2023 Refill [facility] [address] [place] [address] JulyGermaine MD [address] [place] [address] Erectile dysfunction, unspecified erectile dysfunction type Allergies Active Allergy Reactions Criticality Noted Date Comments Statins Muscle pain 05/26/2022 documented as of this encounter (statuses as of 07/24/2023) Medications Medication Sig Dispensed Refills Start Date End Date Status Testosterone 40.5 MG/2.5GM (1.62%) Transdermal Gel APPLY 1 PACKET TO SKIN ONCE A DAY 0 05/15/2022 Active Olmesartan Medoxomil-HCTZ 40-25 MG Oral TabletIndications: Hypertension goal BP (blood pressure) < 140/90 Take 1 Tablet by mouth in the morning. 90 Tablet 3 04/13/2023 Active Sildenafil Citrate 100 MG Oral TabletIndications: Erectile dysfunction, unspecified erectile dysfunction type Take 1 Tablet by mouth daily as needed for Erectile Dysfunction. 30 Tablet 0 07/24/2023 Active Sildenafil Citrate 100 MG Oral TabletIndications: Erectile dysfunction, unspecified erectile dysfunction type Take 1 Tablet by mouth daily as needed for Erectile Dysfunction. 30 Tablet 0 04/13/2023 07/23/2023 Discontinued (Refill) documented as of this encounter (statuses as of 07/24/2023) Active Problems Problem Noted Date Diagnosed Date S/P aortic valve replacement 06/22/2022 Bicuspid aortic valve 06/22/2022 Hypercholesterolemia 06/22/2022 Low testosterone 06/22/2022 Statin intolerance 06/22/2022 Primary insomnia 06/22/2022 Hypertension goal BP (blood pressure) < 140/90 0 06/22/2022 documented as of this encounter (statuses as of 07/24/2023) Social History Tobacco Use Types Packs/Day Years [...] encounter Miscellaneous Notes * Telephone Encounter - Jimenez Bryan [facility] - 07/24/2023 7:27 PM EDTSigned Prescriptions: Disp Refills Sildenafil Citrate 100 MG Oral Tablet 30 Tab*0 Sig: Take 1 Tablet by mouth daily as needed for Erectile Dysfunction. Authorizing Provider: GERMAINE MONCADA Ordering User: JIMENEZ BRYAN * Telephone Encounter - Trina Cunningham CPhT - 07/23/2023 2:27 PM EDT Did you pend patient's preferred pharmacy and medication before forwarding?yes Pharmacy: [id number] Pending Prescriptions: Disp Refills Sildenafil Citrate 100 MG Oral Tablet 30 Tab*0 Sig: Take 1 Tablet by mouth daily as needed for Erectile Dysfunction. Last Visit: 04/13/2023 (in office), Visit date not found (telemedicine) Next Visit: 10/19/2023 If no future appointments scheduled, and last appointment is greater than a year ago, please schedule patient for a follow-up appointment Last date the medication was ordered: 04/13/23 Is this request for a controlled substance?No Urine Drug Screen:No results found for this or any previous visit. Patient Phone Numbers Labs: No results found for: "CREAT", "POTASSIUM", "TSH", "LDLCALC", "LDLDIRECT", "LDLCHOL", "ALT", "HGBA1C" documented in this encounter Plan of Treatment Upcoming Encounters Date Type Department Care Team (Late st Contact Info) Description 10/19/2023 4:40 PM EDT Office Visit [facility] [address] [place] [address] July, Germaine Knowles MD [address] [place] [address] Health Maintenance Due Date Last Done [...] Colorectal Cancer Screening 04/09/2021 GFR 10/30/2021 10/30/2020, 08/07/2020, 10/29/2020, Additional history exists COVID-19 Vaccine ( - season) 2022 Influenza Vaccine (FLU shot) (Season [...] type documented in this encounter Care Teams A&P Technician Relationship Specialty Start Date End Date July, Germaine Knowles MD [address] [place] [address] PCP - General Family Medicine 06/18/22 documented as of this encounter
--- OUTSIDE RECORDS SUMMARY | 2023-11-03 11:21 | External Medical Summary | Summary of Care ---
Author Name Unknown Organization [facility] Address [address] [place] [facility] [place] [address] Phone [phone] Care Team Providers Care Employee Adviser Name Role Phone Duc Lewis MD Primary Care Provider [phone] Reason for Visit * Reason Comments Outpatient Testing Encounter Details Date Type Department Care Team (Late st Contact Info) Description 08/28/2023 8:20 AM EDT Laboratory Laboratory, [facility] [address] [facility] [place] [address] [facility] [address] [facility] [place] [address] Home possibly has lead paint Allergies Active Allergy Reactions Criticality Noted Date Comments Statins Muscle pain 05/26/2022 documented as of this encounter (statuses as of 08/28/2023) Medications Medication Sig Dispensed Refills Start Date [...] as of this encounter (statuses as of 08/28/2023) Active Problems Problem Noted Date Diagnosed Date S/P aortic valve replacement 06/22/2022 Bicuspid aortic valve 06/22/2022 Hypercholesterolemia 06/22/2022 Low testosterone 06/22/2022 Statin intolerance 06/22/2022 Primary insomnia 06/22/2022 Hypertension goal BP (blood pressure) < 140/90 0 06/22/2022 documented as of this encounter (statuses as of 08/28/2023) Social History Tobacco Use Types Packs/Day Years Used Date Smoking Tobacco: Never Smokeless Tobacco: Never Alcohol Use Standard Drinks/Week Comments Never 0 (1 standard drink = 0.6 oz pur e alcohol) Utilities Answer Date Recorded Do you have trouble paying y our heating, water, or electric bill? (Adult - for ages 18 years and over) Not on file 08/24/2023 Is your family able to pay t he heat, water, or electric bill? (Household - for ages 0-17 years) Not on file 08/24/2023 Does your family have access to good internet? (Household - for ages 0-17 years) Not on file 08/24/2023 Social Connections Answer Date Recorded How often do you feel lonely or isolated from those around you? (Adult - for ages 18 years and over) Not on file 08/24/2023 Sex and Gender Information Value Date Recorded Sex Assigned at Not on file Gender Identity Not on file Sexual Orientation Not on file Job Start Date Occupation Industry Not on file Not on file Not on file documented as of this encounter Plan of Treatment Upcoming Encounters Date Type Department Care Team (Late st Contact Info) Description 10/19/2023 4:40 PM EDT Office Visit [facility] [address] [place] [id number] JulyDuc MD [address] [place] [address] Pending Results Name Type Priority Associated Diagnoses Date /Time LEAD, VENIPUNCTURE Lab Routine Home possibly has lead paint 08/28/2023 8:07 AM EDT Health Maintenance Due Date Last Done Comments Depression Screening 1977 HIV Screening 1980 Hepatitis C Screening 07/20/1983 DTaP,Tdap,and Td Vaccines (1 - Tdap) 1984 Hepatitis B (1 of 3 - 19+ 3-dose series) 1984 Colonoscopy 2010 Fecal Occult Blood Test 2010 Sigmoidoscopy 2010 Zoster Vaccines (1 of 2) 07/20/2015 Cologuard 04/09/2021 04/09/2018, 03/30/2018 Colorectal Cancer Screening 04/09/2021 COVID-19 Vaccine ( season) 2022 *BASELINE EKG FOR HTN 08/02/2023 Influenza Vaccine (FLU shot) (Season Ended) 2023 GFR 07/30/2024 07/31/2023, 0807/2020, 10/30/2020, Additional history exists Albumin/Creatinine Ratio 07/30/2026 07/31/2023 Diabetes Screening 07/30/2026 07/31/2023, 07/31/2023 Lipid Panel 07/30/2028 07/31/2023 GARDASIL-HPV IMMUNIZATION SERIES Aged Out No longer [...] as of this encounter Visit Diagnoses Diagnosis Home possibly has lead paint documented in this encounter Care Teams Employee Adviser Relationship Specialty Start Date End Date July, Duc Knowles MD [address] [place] [address] PCP - General Family Medicine 06/18/22 documented as of this encounter
--- OUTSIDE RECORDS SUMMARY | 2023-11-03 11:21 | External Medical Summary ---
Author Name Unknown Address Unknown Organization [id number]:LABORATORY [facility] - [facility] [place][note 2] [address] [address] Laboratory Report Ordering Provider Test Date Status 07/31/2023 08:02:28 Final Observation Date Value Abnormality Reference (Units ) Status Testosterone [Mass/volume] in Serum or Plasma 07/31/2023 08:02:28 293.9 193.0-740.0 (ng/dL) Final Performing Location LABORATORY [facility] - [address] [address]
--- OUTSIDE RECORDS SUMMARY | 2023-11-03 11:21 | External Medical Summary ---
Author Name Unknown Address Unknown Organization K01:LABORATORY [facility] - [address] [facility] [address] Laboratory Report Ordering Provider Test Date Status GERMAINE,07/31/2023 08:02:28 Final Observation Date Value Abnormality Reference (Units ) Status Triglyceride 07/31/2023 08:02:28 234 Above high normal <=174 (mg/dL) Final Triglyceride Reference Range s (mg/dL):
<150 Acceptable
150-174 Borderline high
175-499 High
>=500 Very high Cholesterol 07/31/2023 08:02:28 272 Above high normal <200 (mg/dL) Final Total Cholesterol Reference Ranges (mg/dL):
<200 Desirable
200-239 Borderline high
>=240 High HDL 07/31/2023 08:02:28 44 >39 (mg/dL ) Final HDL Cholesterol Reference Ra nges (mg/dL):
>=60 High (Desirable)
<50 Low (Undesirable) For Females
<40 Low (Undesirable) For Males NON-HDL CHOLESTEROL 07/31/2023 08:02:28 228 Above high normal <=159 (mg/dL) Final Non-HDL Cholesterol Referenc e Range (mg/dL):
<100 Target level for high risk ASCVD patient
<130 Optimal for general population
130-159 Near optimal for general population
160-189 Borderline High
190-219 High
>=220 Very High LDL, (calculated) 07/31/2023 08:02:28 181 Above high n ormal <=129 (mg/dL) Final LDL Cholesterol Reference Ra nges (mg/dL):
<70 Target level for high risk ASCVD patient
<100 Optimal for general population
100-129 Near optimal for general population
130-159 Borderline high
160-189 High
>=190 Very high Performing Location LABORATORY [facility] [place] [facility] - [address] [facility] [address]
--- OUTSIDE RECORDS SUMMARY | 2023-11-03 11:21 | External Medical Summary | Summary of Care ---
Author Name Unknown Organization [facility] Address [address] [place] [address] Phone [phone] Care Team Providers Care Perioperative Assistant Name Role Phone Duc Lewis MD Primary Care Provider [phone] Reason for Visit * Reason Comments Outpatient Testing Encounter Details Date Type Department Care Team (Late st Contact Info) Description 07/31/2023 8:10 AM EDT Laboratory Laboratory, [facility] [address] [facility] [place] [address] [facility] [address] Hypertension goal BP (blood pressure) [...] Description 10/19/2023 4:40 PM EDT Office Visit [facility] [address] [place] [address] JulyDuc MD [address] [place] [address] Pending Results Name Type Priority Associated Diagnoses Date /Time COMPREHENSIVE METABOLIC PANEL Lab Routine Hypertension goal BP (blood pressure) < 140/90 07/31/2023 8:02 AM EDT LIPID PANEL WITH DIRECT LDL IF TG IS HIGH Lab Routine Hypercholesterolemia 07/31/2023 8:02 AM EDT TESTOSTERONE, TOTAL Lab Routine Low testosterone 07/31/2023 8:02 AM EDT HEMOGLOBIN A1C Lab Routine Screening for diabetes mellitus 07/31/2023 8:02 AM EDT ALBUMIN / CREATININE RATIO, URINE Lab Routine Hypertension goal BP (blood pressure) < 140/90 07/31/2023 8:59 AM EDT Health Maintenance Due Date Last [...] 10/29/2020, Additional history exists COVID-19 Vaccine ( season) 2022 Influenza Vaccine (FLU shot) (Season [...] mellitus documented in this encounter Care Teams Perioperative Assistant Relationship Specialty Start Date End Date July, Duc Knowles MD [address] [place] [address] PCP - General Family Medicine 06/18/22 documented as of this encounter
--- OUTSIDE RECORDS SUMMARY | 2023-11-03 11:21 | External Medical Summary ---
Author Name Unknown Address Unknown Organization [id number]:[facility] [place] [address] [facility] [place] [facility] [address] Laboratory Report Ordering Provider Test Date Status ELY GONZALEZ 08/28/2023 08:07:08 Final This test was developed and its performance characteristics determined by [employer]. It has not been cleared or approved by the [place] Food and Drug Administration. Observation Date Value Abnormality Reference (Units ) Status Lead 08/28/2023 08:07:08 <1.0 0.0-4.9 (u g/dL) Final Performing Location [facility] - [address] [facility] [address]
--- OUTSIDE RECORDS SUMMARY | 2023-11-03 11:21 | External Medical Summary ---
Author Name Unknown Address Unknown Organization K01:LAB[facility]ATORY [facility] - [address] [place] [address] Laboratory Report Ordering Provider Test Date Status 07/31/2023 08:02:28 Final Observation Date Value Abnormality Reference (Units ) Status HbA1C 07/31/2023 08:02:28 5.5 4.0-5.6 (% ) Final The use of HbA1c to monitor glycemic status is based on normal hemoglobin and HbA composition. This test should not be used in patients with abnormal hemoglobin that affects the half life of the red blood cell or the in vivo glycation rates. Glucose, estimated average 07/31/2023 08:02:28 111 <126 (mg/dL) Final Performing Location LAB[facility] [place] [address] [place] [address]
--- NOTE | 2023-11-03 12:04 | Communication Note ---
Date of Service: November 03, 2023 Stress echocardiogram is negative for ischemia, high workload achieved. No symptoms suggestive angina were reproduced with exercise. No further cardiac testing felt to be indicated at present. Stable for discharge from cardiac perspective with new medication of aspirin, enteric- coated, 81 mg daily. Plan for outpatient cardiology follow-up within about a month, I will messages to the office. Will plan on further follow-up of dyslipidemia and mild ascending aorta enlargement as an outpatient. Haydee Ortega,DO
[2023-11-03] MEDS: POTASSIUM CHLORIDE CRTAB 20 MEQ TABCR PO STA (12:49)
[2023-11-03] MEDS: ASPIRIN 81 MG ECTAB PO SCH (12:50)
--- NOTE | 2023-11-03 13:41 | Discharge Summary ---
Date of Service November 03, 2023 Admission HPI Per Admitting Provider 58-year-old male with PMH of HTN, bicuspid aortic valve status post bovine valve replacement 4 years ago on annual echo surveillance presented to the ED with complaint of chest pain. Patient reports that he woke up with retrosternal chest discomfort in the morning, 1-2/10 in severity, no radiation to scapula or back or arm or neck, had 1 episode of associated sweating/clammy for about 5 minutes in the day, did not improve through the day, did not have exacerbation with activity, presented to the ED as he was concerned because of his cardiac history. Patient denies fever/sore throat/cough/abdominal pain/acute changes in his bowel or bladder habit. Patient denies smoking, rarely uses alcohol, denies recreational drug use Medication discussed with the patient in detail Full code Plan of care discussed with the patient and his at bedside who voiced understanding and were agreeable. Admission Exam Per Admitting Provider GENERAL: Alert and oriented x3. NAD, on RA. Obese class I. HEENT: No pallor, no icterus. Pupils equal, round and reactive to light. Oral mucosa moist. NECK: No JVD, no neck masses. HEART: S1 and S2 heard. Regular rate and rhythm. + murmur, no gallop. RESPIRATORY SYSTEM: Normal AP diameter. No accessory muscle use. No wheezing, no crackles. ABDOMEN: Soft, bowel sounds present, nontender, no distention. CENTRAL NERVOUS SYSTEM: No facial droop. Speech is clear. Obeys simple commands. Moves extremities. EXTREMITIES: No edema, no erythema seen. Principal Diagnosis Chest pain Discharge Exam Constitutional + well hydrated; no acute distress Eyes PERRL, conjunctivae normal, anicteric sclerae ENMT external ear and nose normal, oropharynx normal Respiratory normal respiratory effort, lungs clear to auscultation Cardiovascular Rate/Rhythm: regular rate and regular rhythm S1 S2 Gastrointestinal (Abdomen) normal bowel sounds, soft, nontender, no hepatosplenomegaly Musculoskeletal no cyanosis or clubbing, extremities motor strength 5/5 Neurologic PERRL, EOMI, accommodation nl, no face palsy, no dysarthria Psychiatric A+Ox3, euthymic affect Discharge Data Allergies Allergy/AdvReac Type Severity Reaction Status Date / Time No Known Allergies Allergy Unverified 11/02/23 16:18 Consultations 11/02/23 18:19 ED Decision to Admit Stat 11/02/23 18:33 Consult Cardiology Routine Ordered Studies 11/02/23 15:41 CT angio chest PE protocol Stat Hospital Course (1) Chest pain: Plan Chest pain rule out ACS Patient has moved in the area in the last year or so. Patient comes in with chest pain. HbA1c 5.3 Troponin trend was negative, EKG without acute ST or T changes. Exercise stress echo was negative for ischemia. Achieved 9.3METS. No angina, BP response to exercise was normal. Discussed with Group Home Manager who recommends starting on ASA 81mg daily and patient will follow up with Cardiology outpatient for management of his dyslipidemia Hypertension: Continue home olmesartan and hydrochlorothiazide. Total Time Total Time Spent Total Time Spent (In Minutes): 35 Total Time Includes: Examination of the Patient, Discharge Planning, Medication Reconciliation and Communication With Other Providers Discharge Plan Discharge Items Patient Disposition: Home - Self-Care Reason For Visit: CHEST PAIN Discharge Diagnosis: Chest pain Condition on Discharge: Good Activity: Resume your previous activity Non-emergency contact: Primary Care Provider and Group Home Manager Call non-emergency contact if: you have any medication questions and your symptoms worsen Follow-up/Referrals: Alonso Ortega DO [Group Home Manager] - (The Cardiology office will contact you for a follow up appointment.) Duc Lewis MD [Primary Care Provider] - (Date & Time 11/10/2023 10:00 AM Provider Duc Lewis MD [facility] ) Diet: Heart Healthy Addtl Attending Provider Instructions: Mr Garzon You came to the hospital and was extensively evaluated for chest pain. You also had stress test done. Please start taking aspirin 81mg daily Please ensure follow up with Cardiology It was a pleasure taking care of you Pending Studies at Discharge: No Stand-Alone Forms: [employer] / [email or web address], Smoking Cessation Medications and DC Order Prescriptions: New aspirin 81 mg Tablet,Delayed Release (Dr/Ec) 81 mg PO QAM Qty: 30 0RF Continued acetaminophen 500 mg Tablet 500 mg PO Q6H PRN (Reason: Pain/Fever) magnesium 250 mg Tablet 250 mg PO DAILY olmesartan-hydrochlorothiazide 40-25 mg Tablet 1 tab PO DAILY Discharge Orders: Discharge Order (Routine); Ordered 11/03/23 Ordered By: Elizabeth Pichardo Admission Data Admit Date/Time: 11/02/23 18:33 Attending Provider: Elizabeth Pichardo I. Admit Provider: Halima Yang Primary Care Provider: Duc Lewis Other Providers: Halima Yang; Griselda Brunson; Alonso Ortega; Speedy Duncan; Jesús Moran; Galdino Rubin; Anthony Campos; Vanessa Navarro; Anushka rTejo; Vera Roberts; Griselda De Santiago; Siddhartha Vega; Joel Degroot; Joyce العلي; Vashti Escobar; Nely Escamilla; Alyx Jarrell; Luiz Ruiz; Princess Zelaya Other Interventions: Discharge Summary Assessment (RN) Last Done: 11/03/23 13:57
--- NOTE | 2023-11-04 06:42 | Electrocardiogram Report ---
Test Reason : Blood Pressure : */* mmHG Vent. Rate : 64 BPM Atrial Rate : 64 BPM P-R Int : 220 ms QRS Dur : 82 ms QT Int : 390 ms P-R-T Axes : 82 29 -4 degrees QTcB Int : 402 ms Sinus rhythm with 1st degree A-V block with sinus arrhythmia Otherwise normal ECG No previous ECGs available Confirmed by Arturo Ordoñez ([id number]) on 11/04/2023 6:42:32 AM Referred By: Confirmed By: Arturo Ordoñez
--- NOTE | 2023-11-04 21:31 | Electrocardiogram Report ---
Test Reason : Blood Pressure : */* mmHG Vent. Rate : 62 BPM Atrial Rate : 62 BPM P-R Int : 238 ms QRS Dur : 96 ms QT Int : 408 ms P-R-T Axes : -29 66 -18 degrees QTcB Int : 414 ms Sinus rhythm with marked sinus arrhythmia with 1st degree A-V block Nonspecific T wave abnormality Abnormal ECG When compared with ECG of 02-Nov-2023 20:47, No significant change was found Confirmed by Arturo Ordoñez ([id number]) on 11/04/2023 9:31:30 PM Referred By: REFERRED SELF Confirmed By: Arturo Ordoñez
--- NOTE | 2023-11-04 21:31 | Electrocardiogram Report ---
Test Reason : Blood Pressure : */* mmHG Vent. Rate : 72 BPM Atrial Rate : 72 BPM P-R Int : 222 ms QRS Dur : 104 ms QT Int : 394 ms P-R-T Axes : 6 55 -55 degrees QTcB Int : 431 ms Sinus rhythm with marked sinus arrhythmia with 1st degree A-V block Nonspecific T wave abnormality Abnormal ECG When compared with ECG of 02-Nov-2023 14:15, No significant change Confirmed by Arturo Ordoñez ([id number]) on 11/04/2023 9:31:08 PM Referred By: REFERRED SELF Confirmed By: Arturo Ordoñez
== END 2023-11-03 14:10 | disposition home or self-care (01) | DRG 313 ==
LOC: ED 13:59 → SUATTDRO 18:33 → EDINP 18:33 → INTOOBSV 18:33 → EDINP 11-03 02:30